=== PATIENT | female | born 1955 | race Caucasian/White ===

== ENCOUNTER 2022-12-04 12:33 | Inpatient (IN) | payer MEDICARE, OTHER ==
[~2022-12-04] VITALS: Ht 162.6 cm; Wt 61.4 kg
[~2022-12-04 12:33] MED LIST: ATOR20 PO; DOCU100 PO; LINZESS290 MCG PO; NAPR220 PO; OMEP20ER PO; SERT50 PO; VALA500 PO
[2022-12-04 13:26] LABS: BASOPHILS ABSOLUTE AUTO 0.04 K/mm3 (0.00-0.23); BASOPHILS PERCENT AUTO 0 % (0-2); EOSINOPHILS PERCENT AUTO 0 % (0-6); Hematocrit 41.2 % (33.0-51.0); Hemoglobin 14.2 g/dL (11.5-16.0); IMMATURE GRAN ABSOLUTE AUTO 0.07 K/mm3 (0.00-0.10); IMMATURE GRAN PERCENT AUTO 1 % (0-1); LYMPHOCYTES ABSOLUTE AUTO 1.32 K/mm3 (0.84-5.20); LYMPHOCYTES PERCENT AUTO 10 % (21-46); MONOCYTES ABSOLUTE AUTO 1.21 K/mm3 (0.16-1.47); MONOCYTES PERCENT AUTO 9 % (4-13); Mean Corpuscular HGB 32.4 pg (26.0-34.0); Mean Corpuscular HGB Conc 34.5 g/dL (31.5-36.5); Mean Corpuscular Volume 94 fL (80-100); Mean Platelet Volume 9.8 fL (9.1-12.4); NEUTROPHILS PERCENT AUTO 81 % (41-73); Platelet Count 233 K/mm3 (150-400); Red Blood Cell Count 4.38 M/mm3 (3.80-5.20); White Blood Cell Count 13.74 K/mm3 (4.00-11.30)
[2022-12-04 13:44] LABS: Albumin, Blood 3.6 g/dL (3.4-5.0); Albumin/Globulin Ratio 0.9 (0.8-1.8); Bilirubin, Total 0.8 mg/dL (0.1-1.0); Bun/Creatinine Ratio 19.9 (12.0-20.0); Calcium, Blood 9.1 mg/dL (8.5-10.1); Creatinine, Blood 0.65 mg/dL (0.40-1.00); Globulin, Blood 4.1 g/dL (2.2-4.0); Potassium, Blood 3.6 mmol/L (3.5-5.5); Total Protein, Blood 7.7 g/dL (6.4-8.2)
--- NOTE | 2022-12-04 18:18 | NUR ---
SHIFT SUMMARY RECENT ER ADMIT THIS AFTERNOON. ARRIVED WITH A WOUND ON HER LEFT HAND, PICTURES IN THE CHART. PT IS SCHEDULED TO HAVE THE WOUND LANCED TOMORROW SO PT TO GO NPO AT MIDNIGHT. ORDER IS IN THE CHART. PT AOX4 AND INDEPENDENT. WILL REPORT TO ONCOMING NURSE.
[2022-12-05 04:56] LABS: BASOPHILS ABSOLUTE AUTO 0.03 K/mm3 (0.00-0.23); BASOPHILS PERCENT AUTO 0 % (0-2); EOSINOPHILS ABSOLUTE AUTO 0.02 K/mm3 (0.00-0.68); EOSINOPHILS PERCENT AUTO 0 % (0-6); Hematocrit 35.6 % (33.0-51.0); Hemoglobin 12.3 g/dL (11.5-16.0); IMMATURE GRAN ABSOLUTE AUTO 0.04 K/mm3 (0.00-0.10); IMMATURE GRAN PERCENT AUTO 0 % (0-1); LYMPHOCYTES ABSOLUTE AUTO 1.45 K/mm3 (0.84-5.20); LYMPHOCYTES PERCENT AUTO 13 % (21-46); MONOCYTES ABSOLUTE AUTO 1.11 K/mm3 (0.16-1.47); MONOCYTES PERCENT AUTO 10 % (4-13); Mean Corpuscular HGB 32.4 pg (26.0-34.0); Mean Corpuscular HGB Conc 34.6 g/dL (31.5-36.5); Mean Corpuscular Volume 94 fL (80-100); NEUTROPHILS ABSOLUTE AUTO 8.94 K/mm3 (1.96-9.15); NEUTROPHILS PERCENT AUTO 77 % (41-73); Platelet Count 192 K/mm3 (150-400); RDW Standard Deviation 41.9 fL (35.1-46.3); White Blood Cell Count 11.59 K/mm3 (4.00-11.30)
[2022-12-05 07:14] LABS: Albumin, Blood 2.9 g/dL (3.4-5.0); Albumin/Globulin Ratio 0.8 (0.8-1.8); Bilirubin, Total 0.5 mg/dL (0.1-1.0); Bun/Creatinine Ratio 16.3 (12.0-20.0); Calcium, Blood 8.5 mg/dL (8.5-10.1); Creatinine, Blood 0.62 mg/dL (0.40-1.00); Globulin, Blood 3.5 g/dL (2.2-4.0); Potassium, Blood 3.7 mmol/L (3.5-5.5); Total Protein, Blood 6.4 g/dL (6.4-8.2)
--- NOTE | 2022-12-05 07:23 | NUR ---
Shift Summary Pt painful L hand, swollen with purple and red discoloration. Swelling spread up through the wrist and forarm this evening. There is also a purple and red discoloration on the R side of pt's head, above the forehead. Pt c/o pain in left hand, medicated per emar. Rcving LR @100 and IV Vancomyacin. AOX4, pleasant and cooperative, independent in room.
--- NOTE | 2022-12-05 16:45 | NUR ---
PATIENT ARRIVED TO UNIT VIA GURNEY, TRANSFERRED TO BED WITH MINIMAL ASSISTANCE. LEFT HAND HAS TINA WRAP/GAUZE BANDAGE AROUND HAND AND MIDDLE FINGER. RIGHT HAND MIDDLE FINGER HAS TINA WRAP & GAUZE BANDAGE. BOTH C/D/I. GAUZE & TEGADERM DRESSING TO FOREHEAD, R SIDE. GAUZE APPEARS SATURATED WITH LIGHT PINK FLUID, PLAN TO CHANGE. PATIENT DENIES PAIN AT THIS TIME. ORIENTED TO ROOM AND CALL LIGHT, IN REACH.
--- NOTE | 2022-12-05 17:30 | NUR ---
DRESSING TO FOREHEAD CHANGE. GAUZE & TEGADERM PALCED.
--- NOTE | 2022-12-05 19:29 | NUR ---
NO ACUTE CHANGES SINCE ARRIVAL TO UNIT. ALL THREE DRESSINGS C/D/I AT THIS TIME. PATIENT DENIES PAIN. REPORT GIVEN TO KAILEE MUNGUIA.
[2022-12-06 01:55] LABS: BASOPHILS ABSOLUTE AUTO 0.02 K/mm3 (0.00-0.23); BASOPHILS PERCENT AUTO 0 % (0-2); EOSINOPHILS PERCENT AUTO 0 % (0-6); Hematocrit 33.2 % (33.0-51.0); Hemoglobin 11.6 g/dL (11.5-16.0); IMMATURE GRAN ABSOLUTE AUTO 0.15 K/mm3 (0.00-0.10); IMMATURE GRAN PERCENT AUTO 1 % (0-1); LYMPHOCYTES ABSOLUTE AUTO 0.53 K/mm3 (0.84-5.20); LYMPHOCYTES PERCENT AUTO 5 % (21-46); MONOCYTES PERCENT AUTO 6 % (4-13); Mean Corpuscular HGB 32.3 pg (26.0-34.0); Mean Corpuscular HGB Conc 34.9 g/dL (31.5-36.5); Mean Corpuscular Volume 93 fL (80-100); Mean Platelet Volume 9.9 fL (9.1-12.4); NEUTROPHILS PERCENT AUTO 88 % (41-73); Platelet Count 202 K/mm3 (150-400); RDW Coefficient Variation 11.9 % (11.7-14.2); RDW Standard Deviation 40.5 fL (35.1-46.3); Red Blood Cell Count 3.59 M/mm3 (3.80-5.20)
[2022-12-06 02:06] LABS: Albumin, Blood 2.6 g/dL (3.4-5.0); Albumin/Globulin Ratio 0.7 (0.8-1.8); Bilirubin, Total 0.3 mg/dL (0.1-1.0); Bun/Creatinine Ratio 15.6 (12.0-20.0); Calcium, Blood 8.6 mg/dL (8.5-10.1); Creatinine, Blood 0.58 mg/dL (0.40-1.00); Globulin, Blood 3.6 g/dL (2.2-4.0); Total Protein, Blood 6.2 g/dL (6.4-8.2)
--- NOTE | 2022-12-06 05:09 | NUR ---
POD1 I&D. VSS. PT SLEPT WELL T/O THE NIGHT. REQUIRED PAIN MEDICATION TWICE T/O THE NIGHT. NO ACUTE EVENTS NOTED. PT IS TOLLERATING PO INTAKE W/O N/V, VOIDING W/O DIFFICULTY. NO DRESSING CHANGES REQUIRED. PLAN FO RPT TO BE EVALUATED TODAY TO DETERMINE IF A SECOND I&D IS REQUIRED. THE PATIENT IS CURRENTLY SLEEPING, IN NO DISTRESS, CALL LIGHT IN REACH
--- NOTE | 2022-12-06 17:48 | NUR ---
SUMMARY PT MEDICATED ONCE DURING SHIFT FOR PAIN TO HEAD AROUND SURGICAL INCISION. CHANGED DRESSING TO FOREHEAD PER DR GARCIA'S VERBAL INSTRUCTION. PT TOLERATED WELL. IV TO RFA INFILTRATED DURING VANCO INFUSION. DC'D, CATHETER INTACT. POWERGLIDE INSERTED AND ABX RESUMED. PT INDEPENDENT IN ROOM. PLAN FOR NPO AFTER MN TONIGHT IN ANTICIPATION OF POSSIBLE REPEAT I&D TOMORROW. CALL LIGHT IN REACH.
--- NOTE | 2022-12-06 22:18 | NUR ---
ASSUMED CARE ASSUMED CARE OF PT, SHE IS RESTING IN BED, DENIES NEEDS.
--- NOTE | 2022-12-07 04:54 | NUR ---
SHIFT SUMMARY PT HAS RESTED T/O THE SHIFT, SHE HAS DENIED PAIN WHEN ASKED. INDEPENDENT IN THE ROOM. PLAN IS FOR SECOND I&D TODAY. SHE HAS BEEN NPO SINCE MIDNIGHT. IV ANTIBIOTICS PER ORDERS. DRESSINGS ARE INTACT TO LEFT HAND AND FOREHEAD. SHE DENIES N/T IN HER EXT. NO ACUTE CHANGES OVERNIGHT. BED IN LOWEST POSITION, CALL LIGHT WITHIN REACH.
--- NOTE | 2022-12-07 10:58 | NUR ---
DR ESCOBEDO IN TO SEE PT PLACED NEW DRESSINGS TO HEAD, L HAND, R HAND PER DR ESCOBEDO'S REQUEST. PT TOLERATED WELL.
--- NOTE | 2022-12-07 11:43 | NUR ---
PT TO OR.
--- NOTE | 2022-12-07 14:32 | NUR ---
Arachnys MALFUNCTION DURING MY ADMISSION ASSESMENT: PT TO PACU FULLY AWAKE, VSS, BILAT HAND DRESSINGS DRY AND INTACT, PACKED, 4X4S WEBRIL, AND TINA WRAPS. FINGERS PINK AND WARM, DRESSING ON RIGHT SIDED FOREHEAD WITH A QUATER SIZE AMOUNT OF PINK FLUID THROUGH DRESSING. WOUND PACKED, 4X4S, AND TRANSPARENT DRESSING INTACT. CENTRAL LINE IN RIGHT UPPER ARM PATENT AND SECURE. 2ND BAG OF LR HUNG. PT C/O 810 PAIN. PT MEDICATED WITH A TOTAL OF 200MCG OF IV FENTANYL. PT STATES PAIN HAS IMPROVED. PT W/ NAUSEA. 4MG IV ZOFRAN GIVEN. LOGAN HUGGER AND WARM BLANKETS PROVIDED.VSS, ON 2L O2 VIA NASAL CANNULA.
[2022-12-07 16:00] LABS: Vancomycin, Trough 14.4 ug/mL (5.0-10.0)
--- NOTE | 2022-12-07 18:45 | NUR ---
SUMMARY PT POD 0 FOR REPEAT I&D OF R FOREHEAD, R RING FINGER AND LEFT MIDDLE FINGER. VSS. MEDICATED PER ORDERS FOR PAIN. IV ABX INFUSING PER ORDERS. CALL LIGHT IN REACH.
--- NOTE | 2022-12-08 04:54 | NUR ---
SHIFT SUMMARY AOX4. POD 1- I&D L MIDDLE FINGER, R HAND FINGER & FOREHEAD. CAP REFILL ON FINGERS <3 SEC, REPORTS 4-8/10 INFREQUENT THROBBING PAIN, MEDICATED 2x c TYLENOL & 1x c NORCO-PT REPORTS PAIN WELL MANAGED @THIS TIME. PT REPORTS FEELING L MIDDLE FINGER HAS INCREASED IN SWELLING, ENCOURAGED ICE USE, TINA WRAP & BANDAGE ON HANDS C/D/I. CHANGE R FOREHEAD GAUZE, MOD SATURATED c SEROSANGUINOUS DRAINAGE. VSS. BP BEING TAKEN ON LEG. IND TO RESTROOM. CALL LIGHT IN REACH, WILL MONITOR.
--- NOTE | 2022-12-08 10:00 | NUR ---
PT PLEASANT COOP ANXIETY NOTED. COME CRYING. STATES SOME ISSUES WITH FAMILY. H/R REG, NO MURMUR NOTED. NO TELE. LUNGS CLEAR, RESP EASY, UNLABORED. EXCEPT WHEN ANXIOUS. ON R.A. BT X4 STATES LAST BM HAS BEEN 4 DAYS. STATES HAS IBS. COLACE GIVEN. ALSO AGREED TO TAKE BROWN COW DRINK, MINUS BUTTER. DONE. DISCUSSED WITH , SHE NORMALLY TAKES LINZESS, BUT WE DO NOT HAVE. WILL ATTEMPT TO GET FROM HOME. ALSO PT STATES MIRALAX ACTS LIKE CEMENT TO HER. UPDATED DR ROQUE ON THIS. VOIDS INDEPENDANT TO BATHROOM. BOTH HANDS WRAPPED. FOREHEAD WOUND FROM I&D, CDI AT THIS TIME. DR REDDY IN THIS AM. SHE CHANGED DRESSING AND WROTE NEW ORDERS FOR CHANGE BID. BED FIN LOW POSITION, CALL LITE IN REACH, CALLS APPROP
--- NOTE | 2022-12-08 10:00 | NUR ---
DR REDDY IN TO CHANGE DRESSING ON FOREHEAD THIS AM.
--- NOTE | 2022-12-08 16:12 | NUR ---
PT QUITE PLEASANT TODAY. SHE DID HAVE SOME ANXIETY TODAY DEALING WITH EHR SON. STATES ELEVATED B/P LIKELY TO THIS. DISCUSSED WITH DR ROQUE. REQUESTED SOMETHING FOR ANX AND HTN MED. ORDERS FOR HYDRALAZINE GIVEN. MED FOR PAIN TODAY TO PT SATISFACTION. NEERAJ MUNGUIA STATES LIKELY TO GO TO SURG FOR FURTHER I & D TOMORROW. NPO MIDNITE. NO OTHER CONCERNS NOTED. BED IN LOW POSITION, CALL LITE IN REACH, CALLS APROP
--- NOTE | 2022-12-08 18:26 | NUR ---
DR ESCOBEDO IN [facility]. STATES WILL NOT TAKE TO DAY SURG TOMORROW. NO NPO. IF DOES ANYTHING, IT WILL BE IN ROOM.
[2022-12-09 04:17] LABS: Hematocrit 32.4 % (33.0-51.0); Mean Corpuscular HGB 31.7 pg (26.0-34.0); Mean Corpuscular Volume 93 fL (80-100); Mean Platelet Volume 9.6 fL (9.1-12.4); Platelet Count 243 K/mm3 (150-400); RDW Coefficient Variation 12.3 % (11.7-14.2); RDW Standard Deviation 42.2 fL (35.1-46.3); Red Blood Cell Count 3.47 M/mm3 (3.80-5.20); White Blood Cell Count 9.51 K/mm3 (4.00-11.30)
[2022-12-09 04:37] LABS: Vancomycin, Trough 13.1 ug/mL (5.0-10.0)
[2022-12-09 04:42] LABS: Albumin, Blood 2.6 g/dL (3.4-5.0); Anion Gap 5 mmol/L (6-16); Blood Urea Nitrogen 7 mg/dL (8-24); Bun/Creatinine Ratio 11.3 (12.0-20.0); CO2, Blood 26 mmol/L (21-32); Calcium, Blood 8.4 mg/dL (8.5-10.1); Chloride, Blood 109 mmol/L (98-108); Creatinine, Blood 0.62 mg/dL (0.40-1.00); Glomerular Filtration Rate 97 (60-); Glucose, Blood 106 mg/dL (70-99); Phosphorus, Blood 4.4 mg/dL (2.5-4.9); Sodium, Blood 140 mmol/L (136-145)
--- NOTE | 2022-12-09 05:30 | NUR ---
SHIFT SUMMARY PT POD3 SANTIAGO HAND I&D, FOREHEAD I&D. MILD SEROSANGUINEOUS DRAINAGE ON FOREHEAD. SANTIAGO HAND DRESSINGS C/D/I. FOREHEAD WITH PACKING AND GAUZE DRESSING CHANGED THIS SHIFT. PT AOX4, AMBULATES INDEP IN ROOM. VOIDING, PASSING GAS, SMALL BM THIS SHIFT. TOLERATING PO INTAKE. MEDICATED FOR PAIN 2X THIS SHIFT. TOLERATING WELL. SBP WAS ELEVATED AT START OF SHIFT 176, HAS NOW COME DOWN TO BASELINE AND IS STABLE. DENIES N&T IN EXTREMITIES. AWAITING ORTHO DR TO SEE IF REPEAT I&D IS NEEDED. IV ABX INFUSING. PT ABLE TO MAKE NEEDS KNOWN, WILL REPORT TO DAY RN.
--- NOTE | 2022-12-09 19:24 | NUR ---
SHIFT SUMMARY POD 4/2 FIRST/SECOND I&D BILATERAL HANDS AND R FOREHEAD, A/OX4, VSS, TOLERATING PO, PAIN WELL MANAGED. DRESSING ON HANDS CHANGED BY ORTHO TODAY, R HAND NOW HAS BANDAID ON THE FINGER AND HER LEFT HAND WAS PACKED USING 1/4 IODOFORM PACKING/STERILE GAUZE/SOFT WRAP/TINA WRAP, FOREHEAD DRESSING CHANGED AND REPACKED WITH 1/2 IODOFORM PACKING/STERILE GAUZE/OPSITE DRESSING. PT INDEPENDENT IN THE ROOM, ABLE TO MAKE NEEDS KNOWN. NO ACUTE EVENTS THIS SHIFT, CALL LIGHT IN REACH, REPORT GIVEN TO NOC RN.
--- NOTE | 2022-12-10 05:43 | NUR ---
SHIFT SUMMARY PATIENT AOX4, TOLERATING PO INTAKE, AND VOIDING WELL. BOWEL CARE IN PROCESS, REPORTS PASSING GAS. R HAND DRESSING CHANGED THIS SHIFT WITH 1/4 IN PACKING GAUZE, AND TINA WRAP. FORE HEAD DRESSING CHANGED WITH PACKING, GAUZE AND TEGADERM. BANDAID ON L MIDDLE FINGER C/D/I. MEDICATED FOR PAIN WITH TORADAL, TOLERATED WELL. CONTINUING ABX, VSS, CALL LIGHT IN REACH.
--- NOTE | 2022-12-10 11:16 | NUR ---
DRESSING CHANGE REMOVED OLD DRESSINGS, FLUSHED WOUND ON R 3RD DIGIT WITH 1L STERILE SALINE, PACKED WITH 1/4 IODOFORM, COVERED WITH STERILE 4X4 GAUZE/SOFT WRAP/TINA WRAP.
--- NOTE | 2022-12-10 12:00 | NUR ---
PAIN REASSESSMENT PT REPORTS SAME PAIN LEVEL BUT JUST COMPLETED A DRESSING CHANGE WITH NEW PACKING BEING PLACED IN HER L 3RD DIGIT. SHE IS ALSO REPORTING THAT SHE FEELS LIKE IT IS STARTING TO KICK IN.
--- NOTE | 2022-12-10 18:40 | NUR ---
SHIFT SUMMARY POD 5/3 BILATERAL HAND I&D, A/OX4, VSS, TOLERATING PO, PAIN WELL MANAGED, INDEPENDENT IN THE ROOM, PASSING FLATUS, VOIDING WELL. PERFORMED BEDSIDE DRESSING CHANGE, R HAND BANDAIDE CHANGED, LEFT HAND DRESSING REMOVED AND FLUSHED WITH 1L STERILE SALINE THEN PACKED WITH IODOFORM AND COVERED WITH A WET TO DRY DRESSING AND TINA WRAP, HEAD DRESSING TO BE CHANGED AT SHIFT CHANGE. NO ACUTE EVENTS THIS SHIFT, CALL LIGHT IN REACH, WILL CTM AND REPORT TO ONCOMING NOC RN.
--- NOTE | 2022-12-11 05:32 | NUR ---
POD 6 AND 4 FOR I&D'S ON FINGERS AND RIGHT FORHEAD. DRESSINGS CHANGED ON ALL WOUNDS AT 0500. PT PREMEDICATED WITH TORADOL. PT SLEPT WELL T/O THE NIGHT OTHERWISE. NO ACUTE EVENTS. VSS. PT VOIDING W/O DIFFICULTY, PASSING STOOL, TOLLERATING PO INTAKE AND AMBULATING W/O DIFFICUTLTY. PLAN FOR PT TO CONTINUE IV ABX AND BE MONITORED FOR ANOTHER I&D.
--- NOTE | 2022-12-11 06:14 | NUR ---
DOCTOR CALL CALL PLACED TO DR JONES D/T THE PATIENT HAVING EMESIS THIS AM AND REFUSING NG TUBE. ORDER OBTAINED FOR 6.5 MG PHENERGEN
--- NOTE | 2022-12-11 09:29 | NUR ---
PT C/O INCREASED PAIN ON L HAND AFTER DRESSING CHANGE THIS AM, 3 SEC CAP. REFILL NOTED, EXPOSED SKIN IS P/W/D, STATES "I DIDN'T THINK I NEED SOME PAIN MEDICINE UNTIL NOW" PT STATES SHE ONLY HAS BEEN TAKING TORADOL, DR. ROQUE NOTIFIED, NORCO ORDERED AND GIVEN TO PT, POWERGLIDE NOTED NON PATENT THIS AM, DC'D, CATH INTACT, NEW IV STARTED ON R FA, NO NEED FOR HALF-WAY INDWELLING LINE PER DR. ROQUE.
[2022-12-11] MEDS ORDERED: HYDR1TAB94 PO (15:05)
[2022-12-11] MEDS ORDERED: VISBIOME 112.51 EACH PO (15:06)
[2022-12-11] MEDS ORDERED: SULTRIDS PO (15:07)
--- NOTE | 2022-12-11 15:36 | NUR ---
DC'D HOME, DC INSTRUCTIONS GIVEN, VERBALIZED UNDERSTANDING.
== END 2022-12-11 15:29 | disposition home or self-care (01) | DRG 854 ==
LOC: ER 12:33 → SURS 15:05 → MEDS 15:05 → SURS 15:05 → MEDS 16:47 → SURS 12-05 14:51
PROVIDERS: Internal Medicine; Orthopaedic Surgery; Student in an Organized Health Care Education/Training Program; ADMIT Internal Medicine
PROC: 3E03329 Introduction of Other Anti-infective into Peripheral Vein, Percutaneous Approach (ICD-10-PCS; principal; 2022-12-04)
PROC: 0JB10ZZ Excision of Face Subcutaneous Tissue and Fascia, Open Approach (ICD-10-PCS; 2022-12-05)
PROC: 0JBK0ZZ Excision of Left Hand Subcutaneous Tissue and Fascia, Open Approach (ICD-10-PCS; 2022-12-05)
PROC: 0JBH0ZZ Excision of Left Lower Arm Subcutaneous Tissue and Fascia, Open Approach (ICD-10-PCS; 2022-12-05)
PROC: 0JBJ0ZZ Excision of Right Hand Subcutaneous Tissue and Fascia, Open Approach (ICD-10-PCS; 2022-12-05)
PROC: 0LB80ZZ Excision of Left Hand Tendon, Open Approach (ICD-10-PCS; 2022-12-07)
PROC: 0LB60ZZ Excision of Left Lower Arm and Wrist Tendon, Open Approach (ICD-10-PCS; 2022-12-07)
PROC: 0LB70ZZ Excision of Right Hand Tendon, Open Approach (ICD-10-PCS; 2022-12-07)
DX: A41.02 Sepsis due to Methicillin resistant Staphylococcus aureus (principal); L02.01 Cutaneous abscess of face; L03.114 Cellulitis of left upper limb; L02.811 Cutaneous abscess of head [any part, except face]; K21.9 Gastro-esophageal reflux disease without esophagitis; Z28.21 Immunization not carried out because of patient refusal; F41.9 Anxiety disorder, unspecified; G89.29 Other chronic pain; L03.011 Cellulitis of right finger; E78.5 Hyperlipidemia, unspecified; M25.552 Pain in left hip; L03.012 Cellulitis of left finger; B42.1 Lymphocutaneous sporotrichosis; F32.A Depression, unspecified; K58.1 Irritable bowel syndrome with constipation; M81.0 Age-related osteoporosis without current pathological fracture; F43.10 Post-traumatic stress disorder, unspecified; E55.9 Vitamin D deficiency, unspecified; Z85.850 Personal history of malignant neoplasm of thyroid; Z85.42 Personal history of malignant neoplasm of other parts of uterus; Z85.048 Personal history of other malignant neoplasm of rectum, rectosigmoid junction, and anus; Z98.890 Other specified postprocedural states; Z90.49 Acquired absence of other specified parts of digestive tract; Z90.710 Acquired absence of both cervix and uterus; Z88.0 Allergy status to penicillin; Z79.899 Other long term (current) drug therapy
CPT/HCPCS: 36415; 70470; 73130; 73201; 80053; 80069; 80202; 82565; 83605; 85025; 85027; 85651; 86140; 87040; 87070; 87075; 87077; 87147; 87186; 87205; 94760; 96374-59; 96375-59; 97110; 97165; 99284-25; A9270; J0360; J0696; J1100; J1885; J2250; J2370; J2405; J2704; J2710; J3010; J3370; J7050; J7120; Q9967

== ENCOUNTER 2022-12-13 02:00 | Day surgery (SDC) | payer MEDICARE, OTHER ==
[~2022-12-13 02:00] MED LIST changes: +HYDR1TAB94 PO; +SULTRIDS PO; +VISBIOME 112.51 EACH PO
== END 2022-12-13 09:00 | disposition home or self-care (01) ==
LOC: ATC 02:00
DX: M15.9 Polyosteoarthritis, unspecified (principal); E78.5 Hyperlipidemia, unspecified
CPT/HCPCS: 99213

== ENCOUNTER 2022-12-14 02:10 | Day surgery (SDC) | payer MEDICARE, OTHER | END 2022-12-14 11:50 | disposition home or self-care (01) | LOC: ATC 02:10 | DX: Z48.00 Encounter for change or removal of nonsurgical wound dressing (principal); L03.012 Cellulitis of left finger | CPT/HCPCS: 99211 ==

== ENCOUNTER 2022-12-15 02:01 | Day surgery (SDC) | payer MEDICARE, OTHER | END 2022-12-15 10:18 | disposition home or self-care (01) | LOC: ATC 02:01 | DX: Z48.00 Encounter for change or removal of nonsurgical wound dressing (principal); L03.012 Cellulitis of left finger | CPT/HCPCS: 99211 ==

== ENCOUNTER 2022-12-16 02:25 | Day surgery (SDC) | payer MEDICARE, OTHER | END 2022-12-16 10:50 | disposition home or self-care (01) | LOC: ATC 02:25 | DX: Z48.00 Encounter for change or removal of nonsurgical wound dressing (principal); L03.012 Cellulitis of left finger; Z88.0 Allergy status to penicillin; Z88.5 Allergy status to narcotic agent; Z79.899 Other long term (current) drug therapy | CPT/HCPCS: 99212 ==

== ENCOUNTER 2022-12-17 02:06 | Day surgery (SDC) | payer MEDICARE, OTHER | END 2022-12-17 10:35 | disposition home or self-care (01) | LOC: ATC 02:06 | DX: Z48.00 Encounter for change or removal of nonsurgical wound dressing (principal); L03.012 Cellulitis of left finger | CPT/HCPCS: 99212 ==

== ENCOUNTER 2022-12-18 00:42 | Day surgery (SDC) | payer MEDICARE, OTHER | END 2022-12-18 11:10 | disposition home or self-care (01) | LOC: ATC 00:42 | DX: Z48.00 Encounter for change or removal of nonsurgical wound dressing (principal); L03.114 Cellulitis of left upper limb | CPT/HCPCS: 99211 ==

== ENCOUNTER 2022-12-19 01:48 | Day surgery (SDC) | payer MEDICARE, OTHER | END 2022-12-19 10:48 | disposition home or self-care (01) | LOC: ATC 01:48 | DX: Z48.00 Encounter for change or removal of nonsurgical wound dressing (principal); L03.012 Cellulitis of left finger | CPT/HCPCS: 99211 ==

== ENCOUNTER 2023-04-10 07:27 | Day surgery (SDC) | payer MEDICARE, OTHER ==
[~2023-04-10] VITALS: Ht 162.6 cm; Wt 60.0 kg
[2023-04-10] VITALS (15 sets, daily range): BP systolic 113–141; BP diastolic 60–84
[~2023-04-10 07:27] MED LIST changes: +MELO7.5 PO; +TRAM50 PO
--- NOTE | 2023-04-10 07:43 | NUR ---
OK TO PROCEED WITH ANCEF DESPITE ALLERGY TO PENICILLIN PER DR PETERSEN. SPOKE TO PHARMACIST WHO CONFIRMED PATIENT HAS RECIEVED ANCEF IN PAST AND OK WITH PLAN TO RECEIVE TODAY DESPITE ALLERGY TO PENICILLIN.
--- NOTE | 2023-04-10 08:19 | NUR ---
Ambulatory in Day SurgeryPre-Op teaching done. Pt verbalizes understanding. Patient confirms NPO status and agrees with scheduled surgery. History, Chart, Medications and Allergies reviewed before start of procedure.
--- NOTE | 2023-04-10 14:36 | NUR ---
Pt. is awake in bed and welcomes my visit. Pt. is pleasant. Facilitate a life review and establish rapport. Pt. displays evidence of an optimisitic view of life despite some difficult circumstances over the years. Considered matters of robert and belief. Extended time is given to Pt. as she spoke of her family and her robert. Prayed with Pt. Pt. verbalized gratitude for the spiritual care visit and welcomed this flask maker to return.
--- NOTE | 2023-04-10 16:05 | NUR ---
ASSUMED CARE OF PATIENT PATIENT AMBULATING IRENE WORKING WITH THERAPY AT THIS TIME
--- NOTE | 2023-04-10 18:31 | NUR ---
SHIFT SUMMARY NO ACUTE CHANGES SINCE ASSUMPTION OF CARE., POD 0 R SINDY, AQUACEL IN PALCE, C/D/I. POLAR PACK TO RIGHT HIP. UP TO CHAIR & BATHROOM SBA W/ FWW & GB. EATING, DRINKING, & VOIDING WELL. REPORTS VERY MINIMAL PAIN, MEDICATED PER EMAR. CALL LIGHT IN REACH.
[2023-04-11 01:18] VITALS: BP 115/61
[2023-04-11 04:51] VITALS: BP 101/60
[2023-04-11 04:55] LABS: BASOPHILS ABSOLUTE AUTO 0.03 K/mm3 (0.00-0.23); BASOPHILS PERCENT AUTO 0 % (0-2); EOSINOPHILS ABSOLUTE AUTO 0.01 K/mm3 (0.00-0.68); EOSINOPHILS PERCENT AUTO 0 % (0-6); Hematocrit 29.6 % (33.0-51.0); Hemoglobin 9.9 g/dL (11.5-16.0); IMMATURE GRAN ABSOLUTE AUTO 0.03 K/mm3 (0.00-0.10); IMMATURE GRAN PERCENT AUTO 0 % (0-1); LYMPHOCYTES ABSOLUTE AUTO 1.66 K/mm3 (0.84-5.20); LYMPHOCYTES PERCENT AUTO 17 % (21-46); MONOCYTES ABSOLUTE AUTO 0.95 K/mm3 (0.16-1.47); MONOCYTES PERCENT AUTO 10 % (4-13); Mean Corpuscular HGB 31.3 pg (26.0-34.0); Mean Corpuscular HGB Conc 33.4 g/dL (31.5-36.5); Mean Corpuscular Volume 94 fL (80-100); Mean Platelet Volume 9.9 fL (9.1-12.4); NEUTROPHILS ABSOLUTE AUTO 6.94 K/mm3 (1.96-9.15); NEUTROPHILS PERCENT AUTO 72 % (41-73); Platelet Count 165 K/mm3 (150-400); RDW Coefficient Variation 12.9 % (11.7-14.2); RDW Standard Deviation 44.5 fL (35.1-46.3); Red Blood Cell Count 3.16 M/mm3 (3.80-5.20); White Blood Cell Count 9.62 K/mm3 (4.00-11.30)
[2023-04-11 05:36] LABS: Bun/Creatinine Ratio 15.1 (12.0-20.0); Calcium, Blood 8.2 mg/dL (8.5-10.1); Creatinine, Blood 0.73 mg/dL (0.40-1.00); Potassium, Blood 4.2 mmol/L (3.5-5.5)
--- NOTE | 2023-04-11 06:17 | NUR ---
SHIFT SUMMARY PT POD R TOTAL HIP, PT HAS RESTED T/O THE SHIFT, PT REPORTS THAT PAIN HAS BEEN MINIMAL AND IS BEING CONTROLLED WITH SCHEDULED TYLENOL AND TORADOL. DRESSING INTACT TO RIGHT HIP. PT DENIES N/T IN EXT AND IS ABLE TO WIGGLE TOES. PT IS VOIDING AND TOLERATING PO INTAKE. EARLIER IN THE SHIFT SHORTLY AFTER SHIFT CHANGE, PT REPORTED THAT SHE GOT UP THIS AND AMBULATED TO THE BATHROOM INDEPENDENTLY WITHOUT ASSISTANCE. PT REPORTS THAT SHE USED WALKER AND FOLLOWED HIP PRECAUTIONS. PT EDUCATED ON THE IMPORTANCE OF CALLING FOR ASSISTANCE BEFORE GETTING OOB, PT EXPRESSED UNDERSTANDING. POST OP VITALS HAVE BEEN STABLE. PLAN IS FOR DC TODAY. FIRE RISK ASSESSED THIS SHIFT, PT EDUCATED ON IGNITION RISK AND SOURCES. PT DENIES POSSESSING IGNITION SOURCES.
[2023-04-11 07:31] VITALS: BP 112/63
[2023-04-11] MEDS ORDERED: ELIQUIS2.5 MG PO (09:47)
[2023-04-11] MEDS ORDERED: Percocet 5-3251 EACH PO (09:48)
--- NOTE | 2023-04-11 12:02 | NUR ---
DISCHARGE SUMMARY PT A&OX4, VSS/RA, KATY PO, VOIDING, AMB SBA FWW/GB, IV DC'D, PAIN MANAGED, IGNITION RISK ASSESSED/FIRE SAFETY EDU PROVIDED. DC INS PROVIDED. PT REP UNDERSTANDING THOSE INSTRUCTIONS. LEFT FLOOR VIA WC WITH CAFE ASSISTANT TO GO HOME WITH FAMILY WITH ALL PERSONAL POSSESSIONS, AQUACEL DRESSINGS, SCRIPS, POLAR BRAD/PLUG.
== END 2023-04-11 10:20 | disposition home or self-care (01) ==
LOC: ORSCMMR 07:27 → ORD 09:15 → SURS 12:33 → ORSCMMR 04-11 10:20
PROVIDERS: Orthopaedic Surgery
PROC: 0SR90JA Replacement of Right Hip Joint with Synthetic Substitute, Uncemented, Open Approach (ICD-10-PCS; principal; 2023-04-10 09:15)
DX: M16.11 Unilateral primary osteoarthritis, right hip (principal); E78.5 Hyperlipidemia, unspecified; Z85.038 Personal history of other malignant neoplasm of large intestine; Z85.42 Personal history of malignant neoplasm of other parts of uterus; Z85.89 Personal history of malignant neoplasm of other organs and systems; Z79.899 Other long term (current) drug therapy; K21.9 Gastro-esophageal reflux disease without esophagitis; F43.10 Post-traumatic stress disorder, unspecified; F41.8 Other specified anxiety disorders
CPT/HCPCS: 36415; 72170; 80048; 85025; 97110; 97116; 97161; A9270; C1776; J0171; J0690; J0735; J1100; J1170; J1885; J2250; J2371; J2405; J2704; J2795; J3010; J7120

== ENCOUNTER 2023-10-11 10:41 | Day surgery (SDC) | payer MEDICARE, OTHER ==
[~2023-10-11] VITALS: Ht 162.6 cm; Wt 62.7 kg
[~2023-10-11 10:41] MED LIST changes: +ELIQUIS2.5 MG PO; +Percocet 5-3251 EACH PO
[2023-10-11 11:21] VITALS: BP 117/79
--- NOTE | 2023-10-11 11:32 | NUR ---
FIRST IV ATTEMPT IN LEFT HAND FAILED, VEIN ROLLED. PT TOW. COBAN AND 2X2S PLACED. Patient up to Ambulate independently. AMBULATION IS PAINFUL. Surgical site prepped with 2% Chlorhexidine cloth wipe. History, Chart, Medications and Allergies reviewed before start of procedure. Patient confirms NPO status and agrees with scheduled surgery. Pre-Op teaching done. Pt verbalizes understanding. Patient States Post-Procedure ride home has been arranged WITH FRIEND.
[2023-10-11 13:28] VITALS: BP 150/77
[2023-10-11 13:43] VITALS: BP 127/70
[2023-10-11 13:53] VITALS: BP 131/86
--- NOTE | 2023-10-11 13:57 | NUR ---
Discharge instructions reviewed with patient. Patient verbalizes understanding. Copy given to patient to take home. Discharged via wheelchair to private car for ride home.
== END 2023-10-11 14:08 | disposition home or self-care (01) ==
LOC: ORSCMMR 10:41 → ORD 12:30 → ORSCMMR 14:08
PROVIDERS: Orthopaedic Surgery
PROC: 0S993ZX Drainage of Right Hip Joint, Percutaneous Approach, Diagnostic (ICD-10-PCS; principal; 2023-10-11 12:30)
DX: T84.51XA Infection and inflammatory reaction due to internal right hip prosthesis, initial encounter (principal); Z96.641 Presence of right artificial hip joint; E78.5 Hyperlipidemia, unspecified; Z79.899 Other long term (current) drug therapy
CPT/HCPCS: 87070; 87075; 87184; 87205; J2704; J3010; J7120

== ENCOUNTER 2023-11-13 01:57 | Day surgery (SDC) | payer MEDICARE, OTHER ==
[~2023-11-13 01:57] MED LIST changes: +CefTRIAXone Sodium 2,000 MG in NS 100 ML IV SCH
[2023-11-13 09:59] VITALS: BP 126/79
[2023-11-13] MEDS ORDERED: ATOR20 PO (10:07)
[2023-11-13] MEDS ORDERED: OXYC5 PO (10:17)
[2023-11-13] MEDS ORDERED: NALOXONE HCL4 MG (10:18)
[2023-11-13] MEDS ORDERED: CEFTRIAXONE2 G1 IV (10:19)
== END 2023-11-13 10:15 | disposition home or self-care (01) ==
LOC: ATC 01:57
DX: T84.7XXA Infection and inflammatory reaction due to other internal orthopedic prosthetic devices, implants and grafts, initial encounter (principal); M89.8X9 Other specified disorders of bone, unspecified site; Z96.641 Presence of right artificial hip joint; Z79.899 Other long term (current) drug therapy; Z88.0 Allergy status to penicillin
CPT/HCPCS: 96365; J0696

== ENCOUNTER 2023-11-14 00:01 | Day surgery (SDC) | payer MEDICARE, OTHER ==
[~2023-11-14 00:01] MED LIST changes: +CEFTRIAXONE2 G1 IV; -CefTRIAXone Sodium 2,000 MG in NS 100 ML IV SCH; +NALOXONE HCL4 MG; +OXYC5 PO
[2023-11-14] MEDS ORDERED: CefTRIAXone Sodium 2,000 MG in NS 100 ML IV SCH (06:00)
[2023-11-14 09:43] VITALS: BP 123/71
== END 2023-11-14 10:03 | disposition home or self-care (01) ==
LOC: ATC 00:01
DX: T84.7XXA Infection and inflammatory reaction due to other internal orthopedic prosthetic devices, implants and grafts, initial encounter (principal); M89.8X9 Other specified disorders of bone, unspecified site; Z96.641 Presence of right artificial hip joint
CPT/HCPCS: 96365; J0696

== ENCOUNTER 2023-11-15 00:50 | Day surgery (SDC) | payer MEDICARE, OTHER ==
[2023-11-15] MEDS ORDERED: CefTRIAXone Sodium 2,000 MG in NS 100 ML IV SCH (01:00)
[2023-11-15 09:35] VITALS: BP 136/72
== END 2023-11-15 09:56 | disposition home or self-care (01) ==
LOC: ATC 00:50
DX: T84.7XXA Infection and inflammatory reaction due to other internal orthopedic prosthetic devices, implants and grafts, initial encounter (principal); M89.8X9 Other specified disorders of bone, unspecified site; Z96.641 Presence of right artificial hip joint; Z88.0 Allergy status to penicillin; Y83.8 Other surgical procedures as the cause of abnormal reaction of the patient, or of later complication, without mention of misadventure at the time of the procedure
CPT/HCPCS: 96365; J0696

== ENCOUNTER 2023-11-16 01:13 | Day surgery (SDC) | payer MEDICARE, OTHER ==
[~2023-11-16 01:13] MED LIST changes: +CefTRIAXone Sodium 2,000 MG in NS 100 ML IV SCH
[2023-11-16 09:47] VITALS: BP 138/69
== END 2023-11-16 10:02 | disposition home or self-care (01) ==
LOC: ATC 01:13
DX: T84.51XA Infection and inflammatory reaction due to internal right hip prosthesis, initial encounter (principal); M89.8X9 Other specified disorders of bone, unspecified site; Z96.641 Presence of right artificial hip joint; Z88.0 Allergy status to penicillin; Z88.5 Allergy status to narcotic agent
CPT/HCPCS: 96365; J0696

== ENCOUNTER 2023-11-17 09:25 | Day surgery (SDC) | payer MEDICARE, OTHER ==
[2023-11-17 09:31] VITALS: BP 136/68
== END 2023-11-17 09:56 | disposition home or self-care (01) ==
LOC: ATC 09:25
DX: T84.51XA Infection and inflammatory reaction due to internal right hip prosthesis, initial encounter (principal); M89.8X9 Other specified disorders of bone, unspecified site; Z96.641 Presence of right artificial hip joint; Z88.0 Allergy status to penicillin
CPT/HCPCS: 96365; J0696

== ENCOUNTER 2023-11-18 09:26 | Day surgery (SDC) | payer MEDICARE, OTHER ==
[~2023-11-18 09:26] MED LIST changes: -CefTRIAXone Sodium 2,000 MG in NS 100 ML IV SCH
[2023-11-18 09:29] VITALS: BP 142/87
== END 2023-11-18 09:51 | disposition home or self-care (01) ==
LOC: ATC 09:26
DX: T84.7XXA Infection and inflammatory reaction due to other internal orthopedic prosthetic devices, implants and grafts, initial encounter (principal); M89.8X9 Other specified disorders of bone, unspecified site; Z96.641 Presence of right artificial hip joint
CPT/HCPCS: 96365; J0696

== ENCOUNTER 2023-11-19 09:29 | Day surgery (SDC) | payer MEDICARE, OTHER ==
[2023-11-19 10:00] VITALS: BP 145/76
[2023-11-19 10:05] LABS: BASOPHILS ABSOLUTE AUTO 0.06 K/mm3 (0.00-0.23); BASOPHILS PERCENT AUTO 1 % (0-2); EOSINOPHILS ABSOLUTE AUTO 0.14 K/mm3 (0.00-0.68); EOSINOPHILS PERCENT AUTO 2 % (0-6); Hematocrit 34.8 % (33.0-51.0); Hemoglobin 11.3 g/dL (11.5-16.0); IMMATURE GRAN ABSOLUTE AUTO 0.03 K/mm3 (0.00-0.10); IMMATURE GRAN PERCENT AUTO 0 % (0-1); LYMPHOCYTES ABSOLUTE AUTO 2.24 K/mm3 (0.84-5.20); LYMPHOCYTES PERCENT AUTO 27 % (21-46); MONOCYTES ABSOLUTE AUTO 0.61 K/mm3 (0.16-1.47); MONOCYTES PERCENT AUTO 7 % (4-13); Mean Corpuscular HGB 29.4 pg (26.0-34.0); Mean Corpuscular HGB Conc 32.5 g/dL (31.5-36.5); Mean Corpuscular Volume 90 fL (80-100); Mean Platelet Volume 8.8 fL (9.1-12.4); NEUTROPHILS ABSOLUTE AUTO 5.31 K/mm3 (1.96-9.15); NEUTROPHILS PERCENT AUTO 63 % (41-73); Platelet Count 432 K/mm3 (150-400); RDW Coefficient Variation 14.6 % (11.7-14.2); RDW Standard Deviation 48.2 fL (35.1-46.3); Red Blood Cell Count 3.85 M/mm3 (3.80-5.20); White Blood Cell Count 8.39 K/mm3 (4.00-11.30)
[2023-11-19 10:26] LABS: Albumin, Blood 3.3 g/dL (3.4-5.0); Albumin/Globulin Ratio 0.8 (0.8-1.8); Bilirubin, Total 0.4 mg/dL (0.1-1.0); Bun/Creatinine Ratio 22.5 (12.0-20.0); C-REACTIVE PROTEIN, EXT RANGE 1.75 mg/dL (0.000-0.300); Calcium, Blood 9.6 mg/dL (8.5-10.1); Creatinine, Blood 0.58 mg/dL (0.40-1.00); Globulin, Blood 4.2 g/dL (2.2-4.0); Total Protein, Blood 7.5 g/dL (6.4-8.2)
== END 2023-11-19 10:14 | disposition home or self-care (01) ==
LOC: ATC 09:29
PROVIDERS: Internal Medicine Infectious Disease
DX: T84.7XXA Infection and inflammatory reaction due to other internal orthopedic prosthetic devices, implants and grafts, initial encounter (principal); M89.8X9 Other specified disorders of bone, unspecified site; Z96.641 Presence of right artificial hip joint; Z88.0 Allergy status to penicillin; Z79.899 Other long term (current) drug therapy
CPT/HCPCS: 80053; 85025; 85651; 86140; 96365; J0696

== ENCOUNTER 2023-11-20 03:38 | Day surgery (SDC) | payer MEDICARE, OTHER ==
[2023-11-20 09:43] VITALS: BP 154/84
== END 2023-11-20 10:26 | disposition home or self-care (01) ==
LOC: ATC 03:38
DX: T84.7XXA Infection and inflammatory reaction due to other internal orthopedic prosthetic devices, implants and grafts, initial encounter (principal); M89.8X9 Other specified disorders of bone, unspecified site; Z96.641 Presence of right artificial hip joint; Z79.899 Other long term (current) drug therapy; Z88.0 Allergy status to penicillin
CPT/HCPCS: 96365; J0696

== ENCOUNTER 2023-11-21 05:19 | Day surgery (SDC) | payer MEDICARE, OTHER ==
[2023-11-21 09:26] VITALS: BP 131/88
== END 2023-11-21 09:55 | disposition home or self-care (01) ==
LOC: ATC 05:19
DX: T84.51XA Infection and inflammatory reaction due to internal right hip prosthesis, initial encounter (principal); M89.8X9 Other specified disorders of bone, unspecified site; Z88.0 Allergy status to penicillin
CPT/HCPCS: 96365; J0696

== ENCOUNTER 2023-11-22 02:55 | Day surgery (SDC) | payer MEDICARE, OTHER ==
[2023-11-22 09:39] VITALS: BP 129/83
== END 2023-11-22 10:06 | disposition home or self-care (01) ==
LOC: ATC 02:55
DX: T84.7XXA Infection and inflammatory reaction due to other internal orthopedic prosthetic devices, implants and grafts, initial encounter (principal); M89.8X9 Other specified disorders of bone, unspecified site; Z96.641 Presence of right artificial hip joint; Z88.0 Allergy status to penicillin; Z79.899 Other long term (current) drug therapy
CPT/HCPCS: 96365; J0696

== ENCOUNTER 2023-11-23 05:00 | Day surgery (SDC) | payer MEDICARE, OTHER ==
[2023-11-23 15:40] VITALS: BP 146/71
== END 2023-11-23 16:01 | disposition home or self-care (01) ==
LOC: ATC 05:00
DX: T84.7XXA Infection and inflammatory reaction due to other internal orthopedic prosthetic devices, implants and grafts, initial encounter (principal); M89.8X9 Other specified disorders of bone, unspecified site; Z96.641 Presence of right artificial hip joint; Z79.899 Other long term (current) drug therapy; Z88.0 Allergy status to penicillin
CPT/HCPCS: 96365; J0696

== ENCOUNTER 2023-11-28 01:18 | Day surgery (SDC) | payer MEDICARE, OTHER ==
[2023-11-28 09:36] VITALS: BP 143/83
== END 2023-11-28 10:03 | disposition home or self-care (01) ==
LOC: ATC 01:18
DX: T84.7XXA Infection and inflammatory reaction due to other internal orthopedic prosthetic devices, implants and grafts, initial encounter (principal); M89.8X9 Other specified disorders of bone, unspecified site; Z96.641 Presence of right artificial hip joint; Z79.899 Other long term (current) drug therapy; Z88.0 Allergy status to penicillin
CPT/HCPCS: J0696

== ENCOUNTER 2023-11-29 02:53 | Day surgery (SDC) | payer MEDICARE, OTHER ==
[~2023-11-29 02:53] MED LIST changes: +CefTRIAXone Sodium 2,000 MG in NS 100 ML IV SCH
[2023-11-29 09:37] VITALS: BP 143/79
== END 2023-11-29 09:54 | disposition home or self-care (01) ==
LOC: ATC 02:53
DX: T84.7XXA Infection and inflammatory reaction due to other internal orthopedic prosthetic devices, implants and grafts, initial encounter (principal); M89.8X9 Other specified disorders of bone, unspecified site; Z96.641 Presence of right artificial hip joint; Z88.0 Allergy status to penicillin
CPT/HCPCS: 96365; J0696

== ENCOUNTER 2025-02-18 06:14 | Observation (INO) | payer MEDICARE, OTHER ==
[2025-02-18] VITALS (15 sets, daily range): BP systolic 119–161; BP diastolic 64–89
[~2025-02-18] VITALS: Ht 162.6 cm; Wt 59.0 kg
[~2025-02-18 06:14] MED LIST changes: +Amoxicillin500 M1 PO; -CefTRIAXone Sodium 2,000 MG in NS 100 ML IV SCH; +Diflucan100 MG PO
[2025-02-18] MEDS ORDERED: FentaNYL Citrate 50 MCG/ML 2 ML Injection IV ONE (06:35)
[2025-02-18] MEDS ORDERED: Ondansetron HCl 2 MG / ML 2ML Vial IV ONE ×2 (06:35→10:05)
[2025-02-18] MEDS ORDERED: NS 1,000 ML IV SCH ×2 (06:35→15:35)
[2025-02-18 06:36] LABS: BASOPHILS ABSOLUTE AUTO 0.04 K/mm3 (0.00-0.23); BASOPHILS PERCENT AUTO 0 % (0-2); EOSINOPHILS ABSOLUTE AUTO 0.03 K/mm3 (0.00-0.68); EOSINOPHILS PERCENT AUTO 0 % (0-6); Hematocrit 47.5 % (33.0-51.0); Hemoglobin 16.2 g/dL (11.5-16.0); IMMATURE GRAN ABSOLUTE AUTO 0.04 K/mm3 (0.00-0.10); IMMATURE GRAN PERCENT AUTO 0 % (0-1); LYMPHOCYTES ABSOLUTE AUTO 2.64 K/mm3 (0.84-5.20); LYMPHOCYTES PERCENT AUTO 16 % (21-46); MONOCYTES ABSOLUTE AUTO 1.29 K/mm3 (0.16-1.47); MONOCYTES PERCENT AUTO 8 % (4-13); Mean Corpuscular HGB 30.7 pg (26.0-34.0); Mean Corpuscular HGB Conc 34.1 g/dL (31.5-36.5); Mean Corpuscular Volume 90 fL (80-100); Mean Platelet Volume 9.4 fL (9.1-12.4); NEUTROPHILS ABSOLUTE AUTO 12.28 K/mm3 (1.96-9.15); NEUTROPHILS PERCENT AUTO 75 % (41-73); Platelet Count 356 K/mm3 (150-400); RDW Coefficient Variation 13.2 % (11.7-14.2); RDW Standard Deviation 43.8 fL (35.1-46.3); Red Blood Cell Count 5.28 M/mm3 (3.80-5.20); White Blood Cell Count 16.32 K/mm3 (4.00-11.30)
[2025-02-18 06:56] LABS: Albumin, Blood 4.2 g/dL (3.4-5.0); Bilirubin, Total 0.6 mg/dL (0.1-1.0); Bun/Creatinine Ratio 28.4 (12.0-20.0); Calcium, Blood 9.4 mg/dL (8.5-10.1); Creatinine, Blood 0.85 mg/dL (0.40-1.00); Globulin, Blood 4.3 g/dL (2.2-4.0); Potassium, Blood 3.8 mmol/L (3.5-5.5); Total Protein, Blood 8.5 g/dL (6.4-8.2)
[2025-02-18] MEDS ORDERED: Morphine Sulfate 4 MG/1 ML Injection IV ONE (08:20)
[2025-02-18] MEDS ORDERED: Lidocaine 2% Jelly Uro-Jet UR ONE (09:05)
[2025-02-18] MEDS ORDERED: Bupivacaine 0.5% W/EPI 1:200000 SDV 30 ML Vial ONE (10:56)
[2025-02-18] MEDS ORDERED: Lactated Ringer's 1,000 ML IV SCH (11:00)
[2025-02-18] MEDS ORDERED: CeFAZolin Sodium 2,000 MG in NS 100 ML IV SCH (11:05)
[2025-02-18] MEDS ORDERED: propofoL 20 ML IV ONE (11:57)
[2025-02-18] MEDS ORDERED: FentaNYL Citrate 50 MCG/ML 2 ML Injection ONE (11:57)
[2025-02-18] MEDS ORDERED: Rocuronium Bromide 10 MG/ML 5ML Injection IV ONE (12:03)
[2025-02-18] MEDS ORDERED: Dexamethasone Sod Phos 10 MG/ML 1ML VIAL ONE (12:14)
[2025-02-18] MEDS ORDERED: Phenylephrine HCl 100 MCG/ML-NS 10MLSYR (1MG/10ML) ONE (12:15)
[2025-02-18] MEDS ORDERED: HYDROmorphone HCl/Pf 1MG SYR ONE (12:24)
[2025-02-18] MEDS ORDERED: FentaNYL Citrate 50 MCG/ML 2 ML Injection IV PRN (12:25)
[2025-02-18] MEDS ORDERED: Ondansetron HCl 2 MG / ML 2ML Vial IV PRN ×2 (12:25→14:10)
[2025-02-18] MEDS ORDERED: HYDROmorphone HCl/Pf 1MG SYR IV PRN ×2 (12:25→14:10)
[2025-02-18] MEDS ORDERED: Ondansetron HCl 2 MG / ML 2ML Vial ONE (13:15)
[2025-02-18] MEDS ORDERED: Ketorolac Tromethamine 30mg Vial ONE (13:15)
[2025-02-18] MEDS ORDERED: Sugammadex Sodium 200 MG/2ML SDV (100 MG/ML) ONE (13:15)
[2025-02-18] MEDS ORDERED: OxyCODONE HCL 5 MG TAB PO PRN (14:10)
[2025-02-18] MEDS ORDERED: Ketorolac Tromethamine 15mg Vial IV PRN (14:15)
--- NOTE | 2025-02-18 14:27 | NUR ---
PT TO ROOM 220. VSS. LAP SITES WITH DERMABOND X-4 TO ABD. BOWEL TONES HYPOACTIVE. IV TO SL. PT ALERT AND ORIENTED X-4. DENIES PAIN. WATER PROVIDED. POST OP VS STARTED. WILL CONTINUE TO MONITOR.
[2025-02-18] MEDS ORDERED: LINZESS290 MCG PO (14:56)
[2025-02-18] MEDS ORDERED: Atorvastatin 10 MG Tab PO SCH (21:00)
[2025-02-19 03:42] VITALS: BP 122/75
[2025-02-19 05:18] LABS: Hematocrit 32.7 % (33.0-51.0); Mean Corpuscular HGB 31.2 pg (26.0-34.0); Mean Corpuscular HGB Conc 33.6 g/dL (31.5-36.5); Mean Corpuscular Volume 93 fL (80-100); Mean Platelet Volume 9.9 fL (9.1-12.4); Platelet Count 209 K/mm3 (150-400); RDW Coefficient Variation 13.2 % (11.7-14.2); RDW Standard Deviation 45.1 fL (35.1-46.3); Red Blood Cell Count 3.53 M/mm3 (3.80-5.20); White Blood Cell Count 10.96 K/mm3 (4.00-11.30)
[2025-02-19 05:48] LABS: Bun/Creatinine Ratio 23.3 (12.0-20.0); Calcium, Blood 8.2 mg/dL (8.5-10.1); Creatinine, Blood 0.64 mg/dL (0.40-1.00); Potassium, Blood 3.6 mmol/L (3.5-5.5)
[2025-02-19] MEDS ORDERED: Omeprazole 20 MG CapCR PO SCH (06:00)
[2025-02-19 07:39] VITALS: BP 125/78
--- NOTE | 2025-02-19 07:58 | NUR ---
SHIFT SUMMARY. PT A&OX4, UP INDEPENDENT IN ROOM. VOIDING. PATIENT WANTED TO GO HOME TODAY. IVF INFUSING AT 75 ML/HR. PT STATES THEY MUST WANT TO HYDRATE ME BEFORE I GO HOME. LAP SITES X4 TO ABD, GLUED, CLOSED WITH A LITTLE BRUISING NOTED. NO ACUTE CHANGES T/O NOC. NS LITER IN BY 520 AM NOW SL. MEDICATED PT PRN AND GAVE SCHEDULED MEDS PER EMAR. GAVE A DOSE OF TORADOL IVP AND WITH OXYCODONE SEEMED TO WORK WELL FOR PAIN. PT RETIRED NURSE, FRIENDLY AND DOING GREAT. REPORT TO RN TAKING PT.
[2025-02-19] MEDS ORDERED: LINACLOTIDE 290 MCG PO SCH (09:00)
[2025-02-19] MEDS ORDERED: Sertraline HCl 50 MG Tab PO SCH (09:00)
[2025-02-19] MEDS ORDERED: OXYC5 PO (13:51)
--- NOTE | 2025-02-19 14:07 | NUR ---
DC INSTRUCT REVIEWED. STATED UNDERSTANDING. PRINTED INSTRUCT DISPENSED. IV DC'D INTACT. HANDWRITTEN RX OXYCODONE DISPENSED. DISCHARGED.
[2025-02-19] MEDS ORDERED: Docusate Sodium 100 MG Cap PO SCH (21:00)
== END 2025-02-19 14:14 | disposition home or self-care (01) ==
LOC: ER 06:14 → SURS 10:48
PROVIDERS: Emergency Medicine; Internal Medicine; ADMIT Surgery
PROC: 0YU74JZ Supplement Right Femoral Region with Synthetic Substitute, Percutaneous Endoscopic Approach (ICD-10-PCS; principal; 2025-02-18 11:00)
PROC: 8E0W4CZ Robotic Assisted Procedure of Trunk Region, Percutaneous Endoscopic Approach (ICD-10-PCS; principal; 2025-02-18 11:00)
DX: K41.30 Unilateral femoral hernia, with obstruction, without gangrene, not specified as recurrent (principal)
CPT/HCPCS: 36415; 71045; 74177; 80048; 80053; 85025; 85027; 94760; 96361; 96374-59; 96375; 96376; 99285-25; A9270; C1781; J0690; J1100; J1171; J1885; J2270; J2371; J2405; J2704; J3010; J7030; J7120; Q9967